=== PATIENT | male | born 1980 | race Caucasian/White ===

== ENCOUNTER 2021-01-15 08:34 | Emergency (ER) | payer SELFPAY ==
[2021-01-15 08:43] VITALS: BP 130/69
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
[2021-01-15] MEDS ORDERED: ACETAMINOPHEN 325 MG TABLET PO STA (08:59)
--- NOTE | 2021-01-15 09:40 | XRAY Report ---
PROCEDURE: Shoulder 3 View LT INDICATIONS: fall onto left shoulder 2 days ago TECHNIQUE: 3 views of the shoulder were acquired. COMPARISON: None. FINDINGS: Bones: There is a left scapular fracture, mildly displaced appearing inferior to the glenohumeral roney nt. No suspicious bony lesions. Visualized ribs appear intact. Soft tissues: No suspicious soft tissue calcifications. IMPRESSION: Mildly displaced left scapular fracture inferior to the glenohumeral joint. Reviewed by: Corie Peraza MD on 01/15/2021 9:38 AM PDT Approved by: Corie Peraza MD on 01/15/2021 9:38 AM PDT Station ID: [id number]
--- NOTE | 2021-01-15 09:51 | XRAY Report ---
PROCEDURE: Chest 1 View X-Ray INDICATIONS: Chest pain TECHNIQUE: One view of the chest was acquired. COMPARISON: None FINDINGS: Surgical changes and devices: None. Lungs and pleura: No pleural effusions or pneumothorax. Lungs are clear. Mediastinum: Mediastinal contours appear normal. Heart size is normal. Bones and chest wall: No suspicious bony lesions. Overlying soft tissues appear unremarkable. IMPRESSION: No acute cardiopulmonary process demonstrated radiographically. Reviewed by: Juno Wyatt MD on 01/15/2021 9:50 AM PDT Approved by: Juno Wyatt MD on 01/15/2021 9:50 AM PDT Station ID: [id number]
== END 2021-01-15 11:15 | disposition home or self-care (01) ==
LOC: ED 08:34
DX: S42.115A Nondisplaced fracture of body of scapula, left shoulder, initial encounter for closed fracture (principal); S22.32XA Fracture of one rib, left side, initial encounter for closed fracture; S27.0XXA Traumatic pneumothorax, initial encounter; S60.512A Abrasion of left hand, initial encounter; V18.0XXA Pedal cycle driver injured in noncollision transport accident in nontraffic accident, initial encounter; Y93.55 Activity, bike riding; Y92.410 Unspecified street and highway as the place of occurrence of the external cause; F17.200 Nicotine dependence, unspecified, uncomplicated
CPT/HCPCS: 71045; 73030; 99283; 99284; A9270

== ENCOUNTER 2021-01-22 15:46 | Outpatient (CLI) | payer SELFPAY ==
--- NOTE | 2021-01-22 16:41 | CT Report ---
PROCEDURE: UPPER EXTREMITY WO - LT INDICATIONS: DISPLACED FX OF LEFT SHOULDER TECHNIQUE: Noncontrast 3 mm axial sections acquired of the left shoulder, with coronal and sagittal reformats. COMPARISON: Left shoulder radiograph dated 01/15/2021. FINDINGS: Image quality: Excellent. Bones: Comminuted fracture involving upper body of scapula near base of the scapular spine and corac oid process is seen with multiple posteriorly displaced fractured fragments and measures up to 7 mm i n distance. Slight impaction at scapular body fracture site is also seen with anterior displacement o f anterior portion of the scapular body with up to 5 mm impaction at fracture site. No other fracture or dislocation is seen. No suspicious intraosseous lesion. [id number] acromioclavicular joint osteoarthritic changes are noted. Soft tissues: There is no gross full-thickness rotator cuff tendon rupture. No rotator cuff muscle a trophy. Small to moderate glenohumeral joint effusion is seen. No intra-articular loose body or abnor mal soft tissue calcifications. Visualized left lung field is clear. IMPRESSION: 1. Acute comminuted and slightly displaced scapular body fracture as described in detail above. No ot her fracture or dislocation is seen. 2. Small to moderate amount of glenohumeral joint effusion. Mild soft tissue edema adjacent to the sc apular fracture site. No full-thickness rotator cuff tendon rupture. Reviewed by: Howie Reyes MD on 01/22/2021 4:39 PM PDT Approved by: Howie Reyes MD on 01/22/2021 4:39 PM PDT Station ID: [id number]
== END 2021-01-22 15:47 | disposition home or self-care (01) ==
LOC: DI 15:46
PROVIDERS: ATTEND Orthopaedic Surgery
DX: S42.152A Displaced fracture of neck of scapula, left shoulder, initial encounter for closed fracture (principal); M19.012 Primary osteoarthritis, left shoulder

== ENCOUNTER 2021-03-07 15:46 | Emergency (ER) | payer SELFPAY ==
[2021-03-07] MEDS ORDERED: HYDROmorphone 1 MG/ML CARPUJECT IVP STA ×2 (15:59→16:47)
[2021-03-07 16:01] VITALS: BP 129/76
--- NOTE | 2021-03-07 16:01 | ED Physician Documentation ---
History of Present Illness - Stated complaint Stated Complaint: BACK PX/FELL OFF LADDER - Additonal information Additional information: 40-year-old male presents to the emergency department for evaluation of acute low back pain. He was working on an extension ladder that slipped out from under him and he fell down backwards landing on the ladder striking his low back on the rungs. Did not strike his head or lose consciousness but arrives in exquisite pain in the low back. He denies any paresthesias history of previous back injury. Review of Systems Constitutional: reports: Reviewed and negative Nose: reports: Reviewed and negative Throat: reports: Reviewed and negative Cardiac: reports: Reviewed and negative Respiratory: reports: Reviewed and negative GI: reports: Reviewed and negative : reports: Reviewed and negative Skin: reports: Reviewed and negative Musculoskeletal: reports: Back pain Neurologic: denies: Syncope, Seizure, Confused, Headache, Head injury, LOC PD PAST MEDICAL HISTORY - Past Medical History Cardiovascular: None Respiratory: None Neuro: None Endocrine/Autoimmune: None GI: None : None HEENT: None Musculoskeletal: None Derm: None - Past Surgical History Past Surgical History: No - Present Medications Home Medications: Ambulatory Orders Medication Instructions Recorded Confirmed HYDROcod/ACETAM 5/325 [[place] 5/325] 1 ea PO Q6H PRN #15 tablet 01/15/21 Cyclobenzaprine [Flexeril] 10 mg PO TID PRN 6 Days #20 tablet 03/07/21 Ibuprofen [Motrin] 800 mg PO Q8H PRN #30 tablet 03/07/21 oxyCODONE [Roxicodone] 5 mg PO Q4-6H #30 tablet 03/07/21 - Allergies Allergies/Adverse Reactions: Allergies Allergy/AdvReac Type Severity Reaction Status Date / Time No Known Drug Allergies Allergy Verified 03/07/21 16:01 - Social History Does the pt smoke?: Yes Smoking Status: Current every day smoker Does the pt drink ETOH?: No Does the pt have substance abuse?: Yes - Immunizations Immunizations are current?: Yes PD ED PE EXPANDED - General General: Alert, In Pain, Other (ambulatory) - Neck Neck: Supple w/out meningeal sx. No: Adenopathy, Soft tissue TTP, Bony TTP, Limited ROM - Cardiac Cardiac: Regular Rate, Radial strong equal, Pedal strong equal, Cap refill < 2 sec - Respiratory Respiratory: Clear to ausultation james. No: Distress, Labored - Abdomen Abdomen: Normal Bowel sounds. No: Tender to palpation - Back Back: Vertebral tenderness, Soft tissue tenderness (lower thoracic and lumbar midline tenderness. NO stepoff or deformity. Ambulatory. 5/5 motor strength BLE. ), Other (no abrasion, ecchymosis) - Extremities Extremities: Normal. No: Deformity, Tenderness - Neuro Neuro: Alert and Oriented X 3, CNII-XII intact - GCS Eye Opening: Spontaneous Motor: Obeys Commands Verbal: Oriented Total: 15 Results - Vitals Vitals: Vital Signs - 24 hr 03/07/21 15:57 Temperature 36.5 C Heart Rate 86 Respiratory 18 Rate Blood Pressure 129/76 O2 Saturation 99 Oxygen O2 Source Room air - Rads (name of study) CXR Radiology: EMP read indepedently (no acute cardiopulmonary process) Thoracic Ct Radiology: Final report received (L1 compression deformity as above. Comminuted left scapular fracture.) Lumbar Ct Radiology: Final report received (50% compression deformity at L1 affecting the anterior middle and posterior thirds of the vertebral body. No retropulsion.) PD MEDICAL DECISION MAKING - ED course Complexity details: reviewed results, re-evaluated patient, considered dif ferential, d/w patient ED course: 40-year-old male presents to the emergency department after a fall of approximately 6 feet from an extension ladder. He reports that he landed on his back striking the rings of the ladder. He endorsed low and mid back pain. He was ambulatory. Denied any head or neck pain. CT of the lumbar and thoracic spine do show a L1 compression fracture as well as a finding of a left scapular fracture. Patient reports to me that he fractured his scapula a number of weeks ago also with a fall. He did receive 2 doses of Dilaudid here in the emergency department with good pain relief. He has been ambulatory. He does not have any findings to suggest impingement of the spinal cord. I have encouraged him to have close follow-up with his primary care provider. Emergent worrisome return precautions were discussed. I am prescribing a short course of short-acting opioid pain medication for this patient. 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 I have discussed that the opioids are for short term therapy only, and will not be refilled from the ED. Departure - Departure Disposition: 01 Home, Self Care Clinical Impression: Compression fracture of L1 lumbar vertebra Qualifiers: Encounter type: initial encounter Qualified Code(s): S32.010A - Wedge compression fracture of first lumbar vertebra, initial encounter for closed fracture Closed left scapular fracture Qualifiers: Encounter type: initial encounter Scapula location: body Fracture alignment: nondisplaced Qualified Code(s): S42.115A - Nondisplaced fracture of body of scapula, left shoulder, initial encounter for closed fracture Fall from ladder Qualifiers: Encounter type: initial encounter Qualified Code(s): W11.XXXA - Fall on and from ladder, initial encounter Instructions: ED Fx Comp Vertebral Prescriptions: Cyclobenzaprine [Flexeril] 10 mg PO TID PRN 6 Days #20 tablet PRN Reason: Spasms Ibuprofen [Motrin] 800 mg PO Q8H PRN #30 tablet PRN Reason: PAIN &/OR FEVER oxyCODONE [Roxicodone] 5 mg PO Q4-6H #30 tablet Comments: Jose M you are seen in the ER today after a fall from a ladder. The CAT scan of your lower back it does show that you have a compression fracture of the first lumbar vertebrae. You also have a noted left scapular fracture however as you discussed with me you broke that a few weeks ago. The vertebral fracture will take a number of weeks to heal there is no specific treatment for it at this time. The type of fracture you have does not put you at risk for spinal cord injury. It is important you discuss this ED visit with your primary care doctor. As your symptoms begin to improve you would benefit from physical therapy. I am prescribing a limited amount of oxycodone to help with your pain at home. Please use this very very sparingly as it is highly addictive and the emergency department cannot refill it. I do encourage you to ice your back over the next 2 to 3 days. Try and be as mobile as possible. Laying for extended periods of time will cause your back to freeze up. If at any point you have concerns of fevers, inability to pee, numbness or tingling between your legs or weakness in your legs and please return immediately to the emergency department.
--- NOTE | 2021-03-07 16:41 | XRAY Report ---
PROCEDURE: Chest 1 View X-Ray INDICATIONS: chest pain TECHNIQUE: One view of the chest was acquired. COMPARISON: 01/15/2021 FINDINGS: Surgical changes and devices: None. Lungs and pleura: No pleural effusions or pneumothorax. Lungs are clear. Mediastinum: Mediastinal contours appear normal. Heart size is normal. Bones and chest wall: No suspicious bony lesions. Patient's known left scapular body fracture is aga in seen with suggestion of healing at fracture site. Overlying soft tissues appear unremarkable. IMPRESSION: No acute cardiopulmonary pathology. Healing left scapular body fracture. Reviewed by: Howie Reyes MD on 03/07/2021 4:40 PM PDT Approved by: Howie Reyes MD on 03/07/2021 4:40 PM PDT Station ID: [id number]
--- NOTE | 2021-03-07 17:07 | CT Report ---
PROCEDURE: LUMBAR SPINE WO INDICATIONS: 6 foot fall onto ladder TECHNIQUE: Noncontrast 3 mm thick sections acquired from the T12 level to the sacrum. Sagittal and coronal refo rmats were constructed. For radiation dose reduction, the following was used: automated exposure co ntrol, adjustment of mA and/or kV according to patient size. COMPARISON: None. FINDINGS: Image quality: Excellent. Bones: There is normal bony alignment. . There is a 50% compression deformity at L1 affecting the a nterior, middle and posterior thirds of the vertebral body. No direct fracture extension is identifie d into the pedicles. No retropulsion. No suspicious lytic or blastic bony lesions. Central spinal c aliber is of normal overall caliber. No pars defects. Soft tissues: No retroperitoneal masses or hematomas. Visualized aorta is normal in caliber. IMPRESSION: 1. 50% compression deformity at L1 affecting the anterior, middle and posterior thirds of the vertebr al body. No retropulsion.. Reviewed by: Corie Peraza MD on 03/07/2021 5:05 PM PDT Approved by: Corie Peraza MD on 03/07/2021 5:05 PM PDT Station ID: [id number]
--- NOTE | 2021-03-07 17:15 | CT Report ---
PROCEDURE: THORACIC SPINE WO INDICATIONS: 6 foot fall onto ladder TECHNIQUE: Noncontrast 3 mm thick sections acquired through the region of interest in the thoracic spine. Sagit hossein and coronal reformats were then constructed. For radiation dose reduction, the following was used : automated exposure control, adjustment of mA and/or kV according to patient size. COMPARISON: None. FINDINGS: Image quality: Excellent. Bones: There is normal overall bony alignment. 50% compression deformity at L1 is present affecting the anterior middle and posterior third of the vertebral body. No retropulsion.. No suspicious scler otic or lytic bony lesions. Central spinal canal is of normal overall caliber. Comminuted left scap ular fracture is present. Soft tissues: No paravertebral masses or hematomas. Visualized posteromedial lungs appear clear. IMPRESSION: 1. L1 compression deformity as above. 2. Comminuted left scapular fracture. Reviewed by: Corie Peraza MD on 03/07/2021 5:14 PM PDT Approved by: Corie Peraza MD on 03/07/2021 5:14 PM PDT Station ID: [id number]
== END 2021-03-07 17:33 | disposition home or self-care (01) ==
LOC: ED 15:46
DX: S32.010A Wedge compression fracture of first lumbar vertebra, initial encounter for closed fracture (principal); S42.115A Nondisplaced fracture of body of scapula, left shoulder, initial encounter for closed fracture; W11.XXXA Fall on and from ladder, initial encounter; F17.200 Nicotine dependence, unspecified, uncomplicated
CPT/HCPCS: 71045; 72128; 72131; 96374; 96376; 99284; J1170

== ENCOUNTER 2023-09-08 10:45 | Outpatient (CLI) | payer BC ==
[2023-09-08 20:56] LABS: CHLAMYDIA TRACHOMATIS DNA NEGATIVE (NEGATIVE); NEISSERIA GONORRHOEAE DNA NEGATIVE (NEGATIVE); TRICHOMONAS VAGINALIS DNA NEGATIVE (NEGATIVE)
[2023-09-10 05:13] LABS: RPR Non Reactive (Non Reactive)
[2023-09-10 20:08] LABS: HIV SCREEN 4TH GENERATION Non Reactive (Non Reactive)
== END 2023-09-08 11:00 | disposition home or self-care (01) ==
LOC: LAB.N 10:45
PROVIDERS: ATTEND Physician Assistant
DX: Z11.3 Encounter for screening for infections with a predominantly sexual mode of transmission (principal)
CPT/HCPCS: 36415; 86592; 87389; 87491; 87591; 87661

== ENCOUNTER 2023-10-07 13:20 | Emergency (ER) | payer BC ==
[2023-10-07 13:41] VITALS: O2SAT 98
--- NOTE | 2023-10-07 13:53 | ED Physician Documentation ---
History of Present Illness - Stated complaint Stated Complaint: IRREGULAR BLOOD WORK - Chief complaint Chief Complaint: General - History obtained from History obtained from: Patient - Additonal information Additional information: 43-year-old gentleman was having his labs checked because he was on fluconazole and has a remote history of treated hepatitis C to make sure he did not develop hepatotoxicity. He had labs done yesterday and was called by his physician to come directly to the emergency department for "acute renal failure." He says he feels fine. He was able to show me the labs in question and he has a BUN of 27 and a creatinine of 1.3 with normal electrolytes, specifically a potassium of 4.3. He denies pedal edema, calf pain, urinary complaints, chest pain, trouble breathing. No prior history of kidney issues. He does take creatine workout supplement. PD PAST MEDICAL HISTORY - Past Medical History Cardiovascular: None Respiratory: None Neuro: None Endocrine/Autoimmune: None GI: None : None HEENT: None Musculoskeletal: None Derm: None - Past Surgical History Past Surgical History: No - Present Medications Home Medications: Ambulatory Orders Medication Instructions Recorded Confirmed Terbinafine [Lamisil] 250 mg PO DAILY 10/07/23 - Allergies Allergies/Adverse Reactions: Allergies Allergy/AdvReac Type Severity Reaction Status Date / Time cephalexin AdvReac Unknown Verified 10/07/23 13:39 - Social History Does the pt smoke?: Yes Smoking Status: Current every day smoker Does the pt drink ETOH?: No Does the pt have substance abuse?: Yes - Immunizations Immunizations are current?: Yes - POLST Patient has POLST: No PD ED PE NORMAL - Vitals Vital signs reviewed: Yes - General General: Alert and oriented X 3, No acute distress - Cardiac Cardiac: RRR, No murmur - Respiratory Respiratory: No respiratory distress, Clear bilaterally - Abdomen Abdomen: Non tender - Extremities Extremities: No edema - Neuro Neuro: Alert and oriented X 3, Normal speech Results - Vitals Vitals: Vital Signs - 24 hr 10/07/23 10/07/23 13:32 15:02 Temperature 36.8 C 36.7 C Heart Rate 61 71 Respiratory 17 16 Rate Blood Pressure 137/76 H 125/80 O2 Saturation 98 98 Oxygen O2 Source Room air - Labs Labs: Laboratory Tests 10/07/23 10/07/23 10/07/23 13:51 13:51 14:14 WBC 7.7 RBC 4.95 Hgb 15.2 Hct 44.5 MCV 89.9 MCH 30.7 MCHC 34.2 RDW 11.9 L Plt Count 222 MPV 9.9 Neut # (Auto) 5.0 Lymph # (Auto) 1.9 Swain # (Auto) 0.6 Eos # (Auto) 0.2 Baso # (Auto) 0.0 Absolute Nucleated RBC 0.00 Nucleated RBC % 0.0 Sodium 136 Potassium 4.0 Chloride 101 Carbon Dioxide 30 Anion Gap 5.0 L BUN 28 H Creatinine 1.2 Estimated GFR (MDRD) 66 L Glucose 93 Calcium 9.9 Magnesium 2.0 Total Bilirubin 0.4 AST 14 ALT 17 Alkaline Phosphatase 58 Total Protein 6.9 Albumin 4.4 Globulin 2.5 Albumin/Globulin Ratio 1.8 Urine Color YELLOW Urine Clarity CLEAR Urine pH 7.0 Ur Specific [place] <=1.005 Urine Protein NEGATIVE Urine Glucose (UA) NEGATIVE Urine Ketones NEGATIVE Urine Occult Blood NEGATIVE Urine Nitrite NEGATIVE Urine Bilirubin NEGATIVE Urine Urobilinogen 0.2 (NORMAL) Ur Leukocyte Esterase NEGATIVE Ur Microscopic Review NOT INDICATED Urine Culture Comments NOT INDICATED PD Medical Decision Making - ED course ED course: 43-year-old gentleman presents to the emergency department for "acute renal failure." That said he shows me his labs and they are really fairly benign with mild prerenal azotemia and no significant electrolyte abnormality. He is taking creatine workout supplement and advised to stop. He received IV fluids and we will recheck his labs. Labs here are actually show improvement, normal CBC, creatinine 0.1 better at 1.2. Departure - Departure Disposition: 01 Home, Self Care Clinical Impression: HOANG (acute kidney injury) Condition: Good Record reviewed to determine appropriate education?: Yes Instructions: ED Dehydration Comments: You were seen today for mild depressed kidney function, looking at the pattern of the labs looks like a combination of some dehydration probably combined with your creatine use. Your creatinine actually got better since yesterday. Today it is 1.2, yesterday was 1.3. Drink plenty of fluids and would recommend ceasing creatine use. Your physician will likely want to repeat labs I would presume Thursday or Thursday so contact them for that. Return if worse. Forms: PCP List Discharge Date/Time: 10/07/23 15:02
[2023-10-07 14:00] LABS: BASOPHILS % (AUTO) 0.4 %; EOSINOPHILS # (AUTO) 0.2 10^3/uL (0.0-0.7); EOSINOPHILS % (AUTO) 2.6 %; HCT - HEMATOCRIT 44.5 % (42.0-52.0); HGB - HEMOGLOBIN 15.2 g/dL (14.0-18.0); LYMPHOCYTES # (AUTO) 1.9 10^3/uL (1.5-3.5); MEAN CORPUSCULAR HEMOGLOBIN 30.7 pg (27.0-31.0); MEAN CORPUSCULAR HGB CONC 34.2 g/dL (32.0-36.0); MEAN CORPUSCULAR VOLUME 89.9 fL (80.0-94.0); MEAN PLATELET VOLUME 9.9 fL (7.4-11.4); MONOCYTES # (AUTO) 0.6 10^3/uL (0.0-1.0); MONOCYTES % (AUTO) 7.5 %; NEUTROPHILS % (AUTO) 64.2 %; PLT - PLATELET COUNT 222 10^3/uL (130-450); RED BLOOD COUNT 4.95 10^6/uL (4.70-6.10); RED CELL DISTRIBUTION WIDTH 11.9 % (12.0-15.0); WHITE BLOOD COUNT 7.7 x10^3/uL (4.8-10.8)
[2023-10-07 14:15] LABS: ALBUMIN 4.4 g/dL (3.2-5.5); ALBUMIN/GLOBULIN RATIO 1.8 (1.0-2.2); BILIRUBIN,TOTAL 0.4 mg/dL (0.2-1.0); CALCIUM 9.9 mg/dL (8.5-10.3); CREATININE 1.2 mg/dL (0.6-1.3); TOTAL PROTEIN 6.9 g/dL (6.4-8.9)
[2023-10-07] MEDS: SODIUM CHLORIDE 0.9% 1,000 ML IV STA (14:21)
[2023-10-07 14:25] LABS: BILIRUBIN,URINE NEGATIVE (NEGATIVE); GLUCOSE, URINE (UA) NEGATIVE (NEGATIVE); KETONES,URINE (UA) NEGATIVE (NEGATIVE); LEUKOCYTE ESTERASE, URINE NEGATIVE (NEGATIVE); NITRITE,URINE NEGATIVE (NEGATIVE); OCCULT BLOOD,URINE NEGATIVE (NEGATIVE); PROTEIN,URINE NEGATIVE (NEGATIVE); UROBILINOGEN,URINE 0.2 (NORMAL) E.U./dL (NORMAL)
[2023-10-07 14:28] LABS: CLARITY,URINE CLEAR (CLEAR)
[2023-10-07 15:04] VITALS: BP 125/80
== END 2023-10-07 15:02 | disposition home or self-care (01) ==
LOC: ED 13:20
DX: N17.9 Acute kidney failure, unspecified (principal); F17.200 Nicotine dependence, unspecified, uncomplicated
CPT/HCPCS: 36415; 51798; 80053; 81001; 81003; 83735; 85025; 87086; 96360; 99283